=== PATIENT | female | born 1965 ===

== ENCOUNTER 2017-10-04 14:17 | Observation (INO) | payer MEDICAID ==
[2017-10-04 14:17] VITALS: BMI 27.8
[2017-10-04] MEDS ORDERED: Sodium Chloride 0.9% 1,000 ML IV STA (16:18)
[2017-10-04 16:34] LABS: BASO # 0.2 K/uL (0.0-0.2); BASO % 2.1 % (0.0-2.0); EOS # 0.6 K/uL (0.0-0.7); EOS % 5.9 % (0.0-4.0); HEMOGLOBIN 15.5 g/dL (11.0-16.0); LYMPH # 4.9 K/uL (1.0-4.3); LYMPH % 51.7 % (20.0-40.0); MEAN CELL VOLUME 86.3 fL (81.0-99.0); MEAN CORPUSCULAR HEMOGLOBIN 29.8 pg (27.0-31.0); MEAN CORPUSCULAR HGB CONC 34.5 g/dL (33.0-37.0); MONO # 0.7 K/uL (0.0-0.8); MONO % 7.1 % (0.0-10.0); NEUT # 3.1 K/uL (1.8-7.0); NEUT % 33.2 % (50.0-75.0); NRBC % 0.1 % (0.0-2.0); RBC 5.21 Mil/uL (3.80-5.20); RED CELL DISTRIBUTION WIDTH 14.4 % (11.5-14.5); WHITE BLOOD COUNT 9.4 K/uL (4.8-10.8)
[2017-10-04 16:36] LABS: HCG,QUALITATIVE URINE NEGATIVE (NEGATIVE)
[2017-10-04 16:41] LABS: INR 0.9; PROTHROMBIN TIME 10.3 SECONDS (9.7-12.2)
[2017-10-04 16:44] LABS: SQUAMOUS EPITHIAL 8 /hpf (0-5); URINE AMORPHOUS SEDIMENT FEW /ul (<OCC); URINE BACTERIA FEW (<OCC); URINE BILIRUBIN NEGATIVE (NEGATIVE); URINE BLOOD NEGATIVE (NEGATIVE); URINE CLARITY Hazy (Clear); URINE COLOR Yellow (YELLOW); URINE GLUCOSE (UA) NORMAL (Normal); URINE LEUKOCYTE ESTERASE TRACE Leu/uL (Negative); URINE PROTEIN NEGATIVE (NEGATIVE); URINE UROBILINOGEN NORMAL mg/dL (0.2-1.0)
[2017-10-04] MEDS ORDERED: Sodium Chloride 0.9% 1,000 ML ONE ×2 (17:05→20:38)
[2017-10-04 17:17] LABS: ALBUMIN 4.7 g/dL (3.5-5.0); ALT/SGPT 31 U/L (9-52); AST/SGOT 54 U/L (14-36); BLOOD UREA NITROGEN 15 mg/dL (7-17); CALCIUM 9.8 mg/dl (8.6-10.4); GFR AFRICAN-AMERICAN > 60; GFR NON-AFRICAN AMERICAN > 60
[2017-10-04 17:27] LABS: CK-MB 0.42 ng/mL (0.0-3.38)
--- NOTE | 2017-10-04 18:11 | C.PDOC ---
History Of Present Illness Patient is a 52 y/o female who presents to the ED with complaints of generalized weakness and nausea for the last 2-3 days. Patient admits to Hx of anemia and states feeling similar to when she has low hemoglobin levels. This morning, patient notes near-syncopal episode; admits to weakness and blurred vision. No other physical complaints at this time. Time Seen by Provider: 10/04/17 15:53 Chief Complaint (Nursing): Dizziness/Lightheaded History Per: Patient History/Exam Limitations: no limitations Onset/Duration Of Symptoms: Days (2-3) Current Symptoms Are (Timing): Still Present Fall Associated With With Symptoms: No Recent travel outside of the [place]: No Past Medical History Reviewed: Historical Data, Nursing Documentation, Vital Signs Vital Signs: Last Vital Signs Temp 98.6 F 10/04/17 18:14 Pulse 68 10/04/17 18:14 Resp 18 10/04/17 18:14 BP 120/77 10/04/17 18:14 Pulse Ox 100 10/04/17 18:16 - Medical History PMH: Anemia, Asthma, Depression, Migraine Denies: Chronic Kidney Disease Surgical History: No Surg Hx - [facility] RADICAL EXCIS SKIN LES (11/11/13) Family History: States: Unknown Family Hx - Social History Hx Tobacco Use: No Hx Alcohol Use: No Hx Substance Use: No - Immunization History Hx Tetanus Toxoid Vaccination: No Hx Influenza Vaccination: No Hx Pneumococcal Vaccination: No Review Of Systems Constitutional: Positive for: Weakness (generalized) Eyes: Positive for: Vision Change (blurred vision during near-syncopal episode) Gastrointestinal: Positive for: Nausea Physical Exam - Physical Exam Appears: Well, Non-toxic, No Acute Distress Skin: Normal Color, Warm, Dry, No Pale Head: Atraumatic, Normacephalic Eye(s): bilateral: Normal Inspection Oral Mucosa: Moist Chest: Symmetrical Cardiovascular: Rhythm Regular, No Murmur Respiratory: Normal Breath Sounds, No Rales, No Rhonchi, No Wheezing Gastrointestinal/Abdominal: Soft, No Tenderness Extremity: Normal ROM (x4) Neurological/Psych: Oriented x3, Normal Speech, Normal Cognition Gait: Steady ED Course And Treatment - Laboratory Results Result Diagrams: 10/04/17 16:27 10/04/17 16:27 ECG: Interpreted By Me ECG Rhythm: Sinus Rhythm, Nonspecific Changes Interpretation Of ECG: no acute changes. Rate From EC O2 Sat by Pulse Oximetry: 100 Progress Note: EKG and cbc ordered. IV fluids administered. CBC shows patient is not anemic. Case was d/w who accepted her to tele for observation, medical device sales consultant wa informed. Disposition - Disposition Disposition: HOSPITALIZED Disposition Time: 18:44 Condition: FAIR Forms: [facility] ([place]) - Clinical Impression Clinical Impression: Near syncope - Scribe Statement The provider has reviewed the documentation as recorded by the Scribe Jessica Nolasco All medical record entries made by the Scribe were at my direction and personally dictated by me. I have reviewed the chart and agree that the record accurately reflects my personal performance of the history, physical exam, medical decision making, and the department course for this patient. I have also personally directed, reviewed, and agree with the discharge instructions and disposition. Decision To Admit - Pt Status Changed To: Hospital Disposition Of: Observation - . Bed Request Type: Telemetry Admitting Physician: Stanton Celeste Jr. Patient Diagnosis: Near syncope
--- NOTE | 2017-10-04 19:33 | CP.PCM.HP ---
History of Present Illness - History of Present Illness History of Present Illness: CC: " I felt dizzy" HPI: 52 year old female with past medical history of anemia and asthma for evaluation of near syncopal episode that occurred today. Patient reports that she began to feel tired and fatigue starting 2 weeks ago. Patient reports that yesterday at work she had an episode of dizziness while at work. She felt unsteady, but the room did not spin and there was no loss of consciousness. Patient attributed these symptoms to her anemia and went home for her and took a multivitamin and ferritin. Patient reports that today her head felt heavy, she felt unsteady again, and fell at work again without loss of consciousness or head trauma. Her coworkers and her told her that her speech was not making sense to them. Patient also reports headache that resolved with Tylenol given in the ED, blurry vision that started with the first episode of dizziness and is still present, 1 episode of epistaxis last week, chills and feeling cold , muscle weakness for the last few months, vomiting yesterday and 4 times today without blood, and decreased appetite. Denied changes in her weight. Patient reports that she had a CT scan 3 months ago in [place] that was negative. PMD:Dr. Eckert Past Medical History: Anemia, asthma Past Surgical History: cyst on scalp removed [address] Mejia, tubal ligation 26 years ago. Medications: Iron 325mg, albuterol prn Allergies: NKDA Family History: father of [place] at age 67. Mother is alive and has heart disease. PGM and PGF both of strokes. 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 Lives with . Denies tobacco use. Admits to drinking alcohol socially. Denies drug use. Present on Admission - Present on Admission Any Indicators Present on Admission: No Review of Systems - Constitutional Constitutional: Chills, Fever - EENT Eyes: Blurred Vision - Cardiovascular Cardiovascular: Dyspnea. absent: Chest Pain, Palpitations - Gastrointestinal Gastrointestinal: Diarrhea, Nausea, Vomiting. absent: Abdominal Pain - Genitourinary Genitourinary: absent: Dysuria - Neurological Neurological: Dizziness, Syncope. absent: Numbness - Endocrine Endocrine: Cold Intolorance, Fatigue. absent: Palpitations Past Patient History - Infectious Disease Hx of Infectious Diseases: None - Tetanus Immunizations Tetanus Immunization: Unknown - Past Medical History & Family History Past Medical History?: Yes - Past Social History Smoking Status: Never Smoked - CARDIAC Hx Cardiac Disorders: No - PULMONARY Hx Asthma: Yes - NEUROLOGICAL Hx Migraine: Yes - HEENT Hx HEENT Problems: No - RENAL Hx Chronic Kidney Disease: No - ENDOCRINE/METABOLIC Hx Endocrine Disorders: No - HEMATOLOGICAL/ONCOLOGICAL Hx Anemia: Yes - INTEGUMENTARY Hx Dermatological Problems: Yes Other/Comment: SCALP MASS X 2 - MUSCULOSKELETAL/RHEUMATOLOGICAL Hx Musculoskeletal Disorders: No Hx Falls: No - GASTROINTESTINAL Hx Gastrointestinal Disorders: No - GENITOURINARY/GYNECOLOGICAL Hx Genitourinary Disorders: No - PSYCHIATRIC Hx Depression: Yes Hx Substance Use: No - SURGICAL HISTORY Hx Surgeries: Yes Hx Tubal Ligation: Yes Other/Comment: excision of mass on scalp - ANESTHESIA Hx Anesthesia: Yes Hx Anesthesia Reactions: No Hx Malignant Hyperthermia: No Meds Allergies/Adverse Reactions: Allergies Allergy/AdvReac Type Severity Reaction Status Date / Time No Known Allergies Allergy Verified 10/04/17 14:39 Physical Exam - Constitutional Appears: Non-toxic, No Acute Distress - Head Exam Head Exam: ATRAUMATIC, NORMAL INSPECTION - Eye Exam Eye Exam: EOMI, Normal appearance, PERRL. absent: Scleral icterus Pupil Exam: NORMAL ACCOMODATION - ENT Exam ENT Exam: Mucous Membranes Moist - Respiratory Exam Respiratory Exam: Clear to Auscultation Bilateral, NORMAL BREATHING PATTERN. absent: Rales, Rhonchi, Wheezes, Stridor - Cardiovascular Exam Cardiovascular Exam: REGULAR RHYTHM, +S1, +S2. absent: Tachycardia, Systolic Murmur - GI/Abdominal Exam GI & Abdominal Exam: Normal Bowel Sounds, Soft. absent: Tenderness - Extremities Exam Extremities exam: Positive for: normal capillary refill, normal inspection, pedal pulses present. Negative for: pedal edema, tenderness - Neurological Exam Neurological exam: Alert, CN II-XII Intact, Oriented x3 - Expanded Neurological Exam Expanded Patient oriented to: person, place, time Cerebellar Function: Romberg: Normal Upper motor neuron: Babinski Sign: Normal Sensory exam: Lower Extremity Light Touch: Normal, Upper Extremity Light Touch: Normal Neuro motor strength exam: Left Upper Extremity: 5, Right Upper Extremity: 5, Left Lower Extremity: 5, Right Lower Extremity: 5 Coma Scale Eye Opening: SPONTANEOUS Coma Scale Motor Response: OBEYS COMMANDS - Psychiatric Exam Psychiatric exam: Normal Affect, Normal Mood - Skin Skin Exam: Normal Color Results - Vital Signs Recent Vital Signs: Last Vital Signs Temp 98.6 F 10/04/17 18:14 Pulse 68 10/04/17 18:14 Resp 18 10/04/17 18:14 BP 120/77 10/04/17 18:14 Pulse Ox 100 10/04/17 18:45 - Labs Result Diagrams: 10/04/17 16:27 10/04/17 16:27 Labs: Laboratory Results - last 24 hr 10/04/17 10/04/17 10/04/17 14:38 16:27 16:27 WBC 9.4 D RBC 5.21 H Hgb 15.5 D Hct 44.9 MCV 86.3 D MCH 29.8 MCHC 34.5 RDW 14.4 Plt Count 300 MPV 9.0 Neut % (Auto) 33.2 L Lymph % (Auto) 51.7 H [place] % (Auto) 7.1 Eos % (Auto) 5.9 H Baso % (Auto) 2.1 H Neut # (Auto) 3.1 Lymph # (Auto) 4.9 H [place] # (Auto) 0.7 Eos # (Auto) 0.6 Baso # (Auto) 0.2 PT INR APTT Sodium 142 Potassium 5.2 Chloride 102 Carbon Dioxide 26 Anion Gap 19 BUN 15 Creatinine 0.7 Est GFR ( Amer) > 60 Est GFR (Non-Af Amer) > 60 POC Glucose (mg/dL) 88 Random Glucose 71 Calcium 9.8 Total Bilirubin 1.0 AST 54 H ALT 31 Alkaline Phosphatase 107 Total Creatine Kinase 111 CK-MB (Mass) 0.42 Troponin I 0.0140 Total Protein 9.3 H Albumin 4.7 Globulin 4.6 H Albumin/Globulin Ratio 1.0 Urine Color Urine Clarity Urine pH Ur Specific [place] Urine Protein Urine Glucose (UA) Urine Ketones Urine Blood Urine Nitrate Urine Bilirubin Urine Urobilinogen Ur Leukocyte Esterase Urine WBC (Auto) Urine RBC (Auto) Ur Squamous Epith Cells Amorphous Sediment Urine Bacteria Urine HCG, Qual 10/04/17 10/04/17 16:27 16:27 WBC RBC Hgb Hct MCV MCH MCHC RDW Plt Count MPV Neut % (Auto) Lymph % (Auto) [place] % (Auto) Eos % (Auto) Baso % (Auto) Neut # (Auto) Lymph # (Auto) [place] # (Auto) Eos # (Auto) Baso # (Auto) PT 10.3 INR 0.9 APTT 32 Sodium Potassium Chloride Carbon Dioxide Anion Gap BUN Creatinine Est GFR ( Amer) Est GFR (Non-Af Amer) POC Glucose (mg/dL) Random Glucose Calcium Total Bilirubin AST ALT Alkaline Phosphatase Total Creatine Kinase CK-MB (Mass) Troponin I Total Protein Albumin Globulin Albumin/Globulin Ratio Urine Color Yellow Urine Clarity Hazy Urine pH 8.0 Ur Specific [place] 1.015 Urine Protein Negative Urine Glucose (UA) Normal Urine Ketones Negative Urine Blood Negative Urine Nitrate Negative Urine Bilirubin Negative Urine Urobilinogen Normal Ur Leukocyte Esterase Trace Urine WBC (Auto) 8 H Urine RBC (Auto) 2 Ur Squamous Epith Cells 8 H Amorphous Sediment Few H Urine Bacteria Few H Urine HCG, Qual Negative Assessment & Plan - Assessment and Plan (Free Text) Assessment: 1.) Dizziness/Syncope Patient admitted to tele - Head CT: No acute intracranial abnormality - f/u CT angio of the head - f/u ECHO - f/u carotid doppler - EKG: NSR - Trop: negative - f/u LISA and EKG x2 - f/u TSH and free T4 - f/u Lipid panel - Neuro checks q4h 2.) Hyperkalemia - K 5.2 - Continue to monitor 3.) History of Asthma - f/u Chest Xray - Albuterol prn 4.) History of Anemia - H/H 15.5/44.9 - Continue to monitor 5.) Prophylaxis - Protonix 40mg daily - SCDs Case discussed with Dr. Roula Cadet PGY-1
[2017-10-04] MEDS ORDERED: Albuterol HFA 90 mcg/actuation (8 g) INH PRN (20:18)
[2017-10-04] MEDS: Sodium Chloride 0.9% 1,000 ML IV SCH (20:37)
--- NOTE | 2017-10-04 21:45 | CT ---
EXAM: CT Head Without Intravenous Contrast EXAM DATE/TIME: 10/04/2017 7:58 PM CLINICAL HISTORY: 52 years old, female; Signs and symptoms; Syncope and collapse TECHNIQUE: Axial computed tomography images of the head/brain without intravenous contrast. All CT scans at this facility use one or more dose reduction techniques, viz.: automated exposure control; ma/kV adjustment per patient size (including targeted exams where dose is matched to indication; i.e. head); or iterative reconstruction technique. COMPARISON: There are no prior studies for comparison. FINDINGS: Brain and ventricles: Ventricles are normal in size and configuration. There is no midline shift. There are no intra-axial or extra-axial mass lesions or areas of hemorrhage. There are no abnormal fluid collections. Woods-white differentiation is maintained. Bones: Cranial vault is intact. Soft tissues: There is a partially calcified posterior parietal scalp mass. Sinuses: There is no acute sinusitis. Ears and mastoids: Middle ears and mastoids are unremarkable Orbits: Orbital contents are unremarkable. IMPRESSION: No acute intracranial abnormality
[2017-10-05] MEDS ORDERED: Iodixanol 320 MG/ML 100 ML BOTTLE IV ONE (01:13)
[2017-10-05 01:20] LABS: BLOOD UREA NITROGEN 13 mg/dL (7-17); CALCIUM 8.5 mg/dl (8.6-10.4); GFR AFRICAN-AMERICAN > 60; GFR NON-AFRICAN AMERICAN > 60
--- NOTE | 2017-10-05 02:26 | CT ---
EXAM: CT Angiography Head With Intravenous Contrast CLINICAL HISTORY: 52 years old, female; Pain; Other: Blurry vision; Patient HX: 10-04-17; Additional info: Sycope/blurry vision TECHNIQUE: Axial computed tomographic angiography images of the head with intravenous contrast using CT angiography protocol. All CT scans at this facility use one or more dose reduction techniques, viz.: automated exposure control; ma/kV adjustment per patient size (including targeted exams where dose is matched to indication; i.e. head); or iterative reconstruction technique. MIP reconstructed images were created and reviewed. Coronal and sagittal reformatted images were created and reviewed. CONTRAST: 100 mL of [id number] administered intravenously. COMPARISON: No relevant prior studies available. FINDINGS: Right internal carotid artery: No acute findings. Intracranial segment is patent with no significant stenosis. No aneurysm. Right anterior cerebral artery: Unremarkable. No occlusion or significant stenosis. No aneurysm. Right middle cerebral artery: Unremarkable. No occlusion or significant stenosis. No aneurysm. Right posterior cerebral artery: Unremarkable. No occlusion or significant stenosis. No aneurysm. Right vertebral artery: Unremarkable as visualized. Left internal carotid artery: No acute findings. Intracranial segment is patent with no significant stenosis. No aneurysm. Left anterior cerebral artery: Unremarkable. No occlusion or significant stenosis. No aneurysm. Left middle cerebral artery: Unremarkable. No occlusion or significant stenosis. No aneurysm. Left posterior cerebral artery: Unremarkable. No occlusion or significant stenosis. No aneurysm. Left vertebral artery: Unremarkable as visualized. Basilar artery: Unremarkable. No occlusion or significant stenosis. No aneurysm. IMPRESSION: Unremarkable head CTA. EXAM: CT Angiography Neck With Intravenous Contrast CLINICAL HISTORY: 52 years old, female; Pain; Other: Blurry vision; Patient HX: 10-04-17; Additional info: Sycope/blurry vision TECHNIQUE: Axial computed tomographic angiography images of the neck with intravenous contrast using CT angiography protocol. MIP reconstructed images were created and reviewed. Coronal and sagittal reformatted images were created and reviewed. CONTRAST: 100 mL of [id number] administered intravenously. COMPARISON: CT - HEAD W/O CONTRAST 2017-10-04 20:50 FINDINGS: VASCULATURE: Right common carotid artery: Unremarkable. No significant stenosis. No dissection or occlusion. Right internal carotid artery: Unremarkable. Extracranial segment is patent with no significant stenosis. No dissection or occlusion. Right external carotid artery: Unremarkable. No occlusion. Right vertebral artery: Unremarkable. No significant stenosis. No dissection or occlusion. Left common carotid artery: Unremarkable. No significant stenosis. No dissection or occlusion. Left internal carotid artery: Unremarkable. Extracranial segment is patent with no significant stenosis. No dissection or occlusion. Left external carotid artery: Unremarkable. No occlusion. Left vertebral artery: Unremarkable. No significant stenosis. No dissection or occlusion. NECK: Bones/joints: No acute fracture. No dislocation. Soft tissues: There are multiple small cervical and submandibular lymph nodes. The largest represent a submandibular lymph node measures 1.9 cm. The largest represent cervical lymph node measures 1.5 cm. No mass. CAROTID STENOSIS REFERENCE USING NASCET CRITERIA: % ICA stenosis = (1 - narrowest ICA diameter/diameter of distal cervical ICA) x 100. Mild - <50% stenosis. Moderate - 50-69% stenosis. Severe - 70-94% stenosis. Near occlusion - 95-99% stenosis. Occluded - 100% stenosis. IMPRESSION: Unremarkable neck CTA.
[2017-10-05 04:29] VITALS: O2SAT 98
[2017-10-05 06:23] LABS: BASO # 0.1 K/uL (0.0-0.2); EOS # 0.6 K/uL (0.0-0.7); EOS % 9.2 % (0.0-4.0); HEMOGLOBIN 12.7 g/dL (11.0-16.0); LYMPH # 3.5 K/uL (1.0-4.3); LYMPH % 50.3 % (20.0-40.0); MEAN CORPUSCULAR HEMOGLOBIN 29.6 pg (27.0-31.0); MEAN CORPUSCULAR HGB CONC 34.4 g/dL (33.0-37.0); MEAN PLATELET VOLUME 9.2 fL (7.2-11.7); MONO # 0.7 K/uL (0.0-0.8); MONO % 10.5 % (0.0-10.0); RBC 4.31 Mil/uL (3.80-5.20); RED CELL DISTRIBUTION WIDTH 14.4 % (11.5-14.5); WHITE BLOOD COUNT 6.9 K/uL (4.8-10.8)
[2017-10-05 06:39] LABS: ALBUMIN 3.2 g/dL (3.5-5.0); ALT/SGPT 20 U/L (9-52); AST/SGOT 26 U/L (14-36); BLOOD UREA NITROGEN 12 mg/dL (7-17); CALCIUM 8.5 mg/dl (8.6-10.4); GFR AFRICAN-AMERICAN > 60; GFR NON-AFRICAN AMERICAN > 60; HDL CHOLESTEROL 43 mg/dL (30-70)
[2017-10-05 06:49] LABS: LDL CHOLESTEROL 76 mg/dL (0-129)
[2017-10-05 06:50] LABS: CK-MB 0.31 ng/mL (0.0-3.38)
--- NOTE | 2017-10-05 06:55 | CP.PCM.PN ---
<Antonio Marmolejo - Last Filed: 10/05/17 09:51> Subjective - Date & Time of Evaluation Date of Evaluation: 10/05/17 Time of Evaluation: 06:51 - Subjective Subjective: PGY-[address] Childress's service: Pt seen and examined at bedside. Nursing reports no acute events overnight. Patient found lying in bed comfortably. She denies dizziness overnight, but admits feeling heavy sensation below her eyes. Reports eyes have been watering, and has "mucous running down her throat." Admits history of seasonal (pollen) allergies. Admits history of migraines, 2-3 times per week which resolve after taking ibuprofen. Objective - Vital Signs/Intake and Output Vital Signs (last 24 hours): Temp Pulse Resp BP Pulse Ox 97.5 F L 62 20 93/57 L 98 10/05/17 04:29 10/05/17 04:29 10/05/17 04:29 10/05/17 04:29 10/05/17 04:29 - Medications Medications: Current Medications Albuterol (Ventolin Hfa 90 Mcg/Actuation (8 G)) 2 puff INH RQ6 PRN PRN Reason: Shortness of Breath Sodium Chloride (Sodium Chloride 0.9%) 1,000 mls @ 80 mls/hr IV .[id number] IVONNE Last Admin: 10/04/17 20:37 Dose: 80 mls/hr Metoclopramide HCl (Reglan) 10 mg IVP Q6H PRN PRN Reason: Nausea/Vomiting Last Admin: 10/04/17 22:42 Dose: 10 mg Pantoprazole Sodium (Protonix Inj) 40 mg IVP DAILY IVONNE - Labs Labs: 10/05/17 06:17 10/05/17 06:17 PT 10.3 SECONDS (9.7-12.2) 10/04/17 16:27 INR 0.9 10/04/17 16:27 APTT 32 SECONDS (21-34) 10/04/17 16:27 - Additional Findings Additional findings: - Constitutional Appears: Non-toxic, No Acute Distress - Head Exam Head Exam: ATRAUMATIC, NORMAL INSPECTION - Eye Exam Eye Exam: EOMI, Normal appearance, PERRL. absent: Scleral icterus Pupil Exam: NORMAL ACCOMODATION - ENT Exam ENT Exam: Mucous Membranes Moist - tenderness to palpation at bilateral maxillary sinuses, hyperemic nostril bilaterally, post-nasal drip - Respiratory Exam Respiratory Exam: Clear to Auscultation Bilateral, NORMAL BREATHING PATTERN. absent: Rales, Rhonchi, Wheezes, Stridor - Cardiovascular Exam Cardiovascular Exam: REGULAR RHYTHM, +S1, +S2. absent: Tachycardia, Systolic Murmur - GI/Abdominal Exam GI & Abdominal Exam: Normal Bowel Sounds, Soft. absent: Tenderness - Extremities Exam Extremities exam: Positive for: normal capillary refill, normal inspection, pedal pulses present. Negative for: pedal edema, tenderness - Neurological Exam Neurological exam: Alert, CN II-XII Intact, Oriented x3 - light touch intact - Psychiatric Exam Psychiatric exam: Normal Affect, Normal Mood - Skin Skin Exam: Normal Color Assessment and Plan - Assessment and Plan (Free Text) Plan: Dizziness/Syncope Patient admitted to tele - Head CT: No acute intracranial abnormality - CT angio of the head: unremarkable - EKG: NSR @ 70, No acute ST/T wave changes - Trop: negative x 2 - f/u ECHO - f/u carotid doppler - TSH and free T4: WNL - Lipid panel: WNL (LDL 76, HDL 43, T Chol 138, TG 75) Seasonal allergies Hx Pollen/tree allergy Claritin 10mg PO Daily Flonase 2 sprays each nostril x 1 week, 1x each there after Hyperkalemia - resolved, 4.4 on am labs - Continue to monitor History of Asthma - Chest Xray (10/05/17): mild venous congestion. Diffuse interstitial lung markings. Tortuous aorta. - Albuterol prn Abnormal UA UA (10/05/17): WBC, few bacteria, but not clean cath (Sq ep 8) Pt denies symptoms, thus no treatment at this time History of Anemia - H/H 15.5/44.9 on admission - Hgb 12.7, perhaps from fluid dilution, pt denies bleeding - Continue to monitor Prophylaxis - Protonix 40mg daily - SCDs - Restart normal diet Antonio Marmolejo PGY-2 D/w Dr. Childress <Stanton Childress Jr. - Last Filed: 10/05/17 14:58> Objective - Vital Signs/Intake and Output Vital Signs (last 24 hours): Temp Pulse Resp BP Pulse Ox 98.7 F 66 18 110/72 98 10/05/17 07:45 10/05/17 07:45 10/05/17 07:45 10/05/17 07:45 10/05/17 08:00 - Medications Medications: Current Medications Albuterol (Ventolin Hfa 90 Mcg/Actuation (8 G)) 2 puff INH RQ6 PRN PRN Reason: Shortness of Breath Fluticasone Propionate (Flonase) 2 spr LIGIA DAILY IVONNE Last Admin: 10/05/17 10:18 Dose: 2 spr Loratadine (Claritin) 10 mg PO DAILY IVONNE Last Admin: 10/05/17 10:19 Dose: 10 mg Metoclopramide HCl (Reglan) 10 mg IVP Q6H PRN PRN Reason: Nausea/Vomiting Last Admin: 10/04/17 22:42 Dose: 10 mg Pantoprazole Sodium (Protonix Inj) 40 mg IVP DAILY IVONNE Last Admin: 10/05/17 10:19 Dose: 40 mg - Labs Labs: 10/05/17 06:17 10/05/17 06:17 PT 10.3 SECONDS (9.7-12.2) 10/04/17 16:27 INR 0.9 10/04/17 16:27 APTT 32 SECONDS (21-34) 10/04/17 16:27 Attending/Attestation - Attestation I have personally seen and examined this patient.: Yes I have fully participated in the care of the patient.: Yes I have reviewed all pertinent clinical information, including history, physical exam and plan: Yes Notes (Text): 10/05/17 14:57 agree with resident note findings and plan of care.
--- NOTE | 2017-10-05 08:09 | RAD ---
Chest x-ray single frontal view History: Shortness of breath. Comparison: 04/09/2016 Findings: Mild venous congestion. Diffuse increased interstitial lung markings. Right hilar prominence. Bibasilar breast and nipple shadows. Tortuous aorta. Heart size within normal limits. Degenerative changes in the spine. Impression: Mild venous congestion. Diffuse increased interstitial lung markings. Right hilar prominence. Bibasilar breast and nipple shadows. Tortuous aorta.
[2017-10-05 08:33] VITALS: BP 110/72; PULSE 66; RESP 18; TEMP 98.7
[2017-10-05] MEDS: Sodium Chloride 0.9% 1,000 ML IV SCH (09:01)
[2017-10-05] MEDS ORDERED: Fluticasone Nasal 50 mcg/Spray NAS SCH (10:00)
[2017-10-05 10:35] LABS: B-TYPE NATRIURETIC PEPTIDE 53.7 pg/mL (0-900)
--- NOTE | 2017-10-05 11:40 | CARD ---
APPROVED REPORT EXAM: Two-dimensional and M-mode echocardiogram with Doppler and color Doppler. Other Information Quality : GoodRhythm : INDICATION Dyspnea Syncope 2D DIMENSIONS IVSd0.9 (0.7-1.1cm)LVDd3.6 (3.9-5.9cm) LVOT Diameter1.8 (1.8-2.4cm)PWd1.1 (0.7-1.1cm) LVDs2.6 (2.5-4.0cm)FS (%) 25.9 % LVEF (%)60.0 (>50%) M-Mode DIMENSIONS Left Atrium (MM)3.60 (2.5-4.0cm)Aortic Root3.06 (2.2-3.7cm) Aortic Cusp Exc.1.77 (1.5-2.0cm) Mitral Valve MV E Gptmwhsh38.9cm/sMV A Titbympe40.6cm/sE/A ratio1.4 TDI E/Lateral E'0.0E/Medial E'0.0 Tricuspid Valve TR Peak [id number]/sRAP [id number] Peak Gr.17mmHg [id number] LEFT VENTRICLE The left ventricle is normal size. There is normal left ventricular wall thickness. The left ventricular function is normal. The left ventricular ejection fraction is within the normal range. There is normal LV segmental wall motion. The left ventricular diastolic function is normal. RIGHT VENTRICLE The right ventricle is normal size. There is normal right ventricular wall thickness. The right ventricular systolic function is normal. ATRIA The left atrium size is normal. The right atrium size is normal. The interatrial septum is intact with no evidence for an atrial septal defect. AORTIC VALVE The aortic valve is normal in structure. No aortic regurgitation is present. MITRAL VALVE The mitral valve is normal in structure. Insignificant trace of mitral regurgitation. TRICUSPID VALVE The tricuspid valve is normal in structure. Insignificant trace to mild tricuspid regurgitation. There is no pulmonary hypertension. PULMONIC VALVE The pulmonary valve is normal in structure. GREAT VESSELS The aortic root is normal in size. The IVC is normal in size and collapses >50% with inspiration. PERICARDIAL EFFUSION There is no pericardial effusion. <Conclusion> Normal bi-ventricular function. No significant valvular abnormality. No pericardial effusion.
--- NOTE | 2017-10-05 15:33 | CP.PCM.DIS ---
Provider - Provider Date of Admission: 10/04/17 18:45 Attending physician: Stanton Celeste Jr, MD Primary care physician: PMD: Madeleine Mckeonist service: Roula Consults: none Time Spent in preparation of Discharge (in minutes): 35 Diagnosis - Discharge Diagnosis (1) Near syncope Status: Acute Comment: See hospital course Hospital Course - Lab Results Lab Results: Most Recent Lab Values WBC 6.9 K/uL (4.8-10.8) 10/05/17 06:17 RBC 4.31 Mil/uL (3.80-5.20) 10/05/17 06:17 Hgb 12.7 g/dL (11.0-16.0) D 10/05/17 06:17 Hct 37.0 % (34.0-47.0) 10/05/17 06:17 MCV 86.0 fL (81.0-99.0) 10/05/17 06:17 MCH 29.6 pg (27.0-31.0) 10/05/17 06:17 MCHC 34.4 g/dL (33.0-37.0) 10/05/17 06:17 RDW 14.4 % (11.5-14.5) 10/05/17 06:17 Plt Count 209 K/uL (130-400) 10/05/17 06:17 MPV 9.2 fL (7.2-11.7) 10/05/17 06:17 Neut % (Auto) 29.0 % (50.0-75.0) L 10/05/17 06:17 Lymph % (Auto) 50.3 % (20.0-40.0) H 10/05/17 06:17 [place] % (Auto) 10.5 % (0.0-10.0) H 10/05/17 06:17 Eos % (Auto) 9.2 % (0.0-4.0) H 10/05/17 06:17 Baso % (Auto) 1.0 % (0.0-2.0) 10/05/17 06:17 Neut # (Auto) 2.0 K/uL (1.8-7.0) 10/05/17 06:17 Lymph # (Auto) 3.5 K/uL (1.0-4.3) 10/05/17 06:17 [place] # (Auto) 0.7 K/uL (0.0-0.8) 10/05/17 06:17 Eos # (Auto) 0.6 K/uL (0.0-0.7) 10/05/17 06:17 Baso # (Auto) 0.1 K/uL (0.0-0.2) 10/05/17 06:17 PT 10.3 SECONDS (9.7-12.2) 10/04/17 16:27 INR 0.9 10/04/17 16:27 APTT 32 SECONDS (21-34) 10/04/17 16:27 Sodium 142 mmol/L (132-148) 10/05/17 06:17 Potassium 4.4 mmol/L (3.6-5.2) 10/05/17 06:17 Chloride 108 mmol/L (98-107) H 10/05/17 06:17 Carbon Dioxide 24 mmol/L (22-30) 10/05/17 06:17 Anion Gap 14 (10-20) 10/05/17 06:17 BUN 12 mg/dL (7-17) 10/05/17 06:17 Creatinine 0.7 mg/dL (0.7-1.2) 10/05/17 06:17 Est GFR ( Amer) > 60 10/05/17 06:17 Est GFR (Non-Af Amer) > 60 10/05/17 06:17 POC Glucose (mg/dL) 88 mg/dL (65-110) 10/04/17 14:38 Random Glucose 88 mg/dL (65-105) 10/05/17 06:17 Calcium 8.5 mg/dl (8.6-10.4) L 10/05/17 06:17 Phosphorus 4.4 mg/dL (2.5-4.5) 10/05/17 06:17 Magnesium 1.8 mg/dL (1.6-2.3) 10/05/17 06:17 Total Bilirubin 0.2 mg/dL (0.2-1.3) 10/05/17 06:17 AST 26 U/L (14-36) 10/05/17 06:17 ALT 20 U/L (9-52) 10/05/17 06:17 Alkaline Phosphatase 82 U/L (38-126) 10/05/17 06:17 Total Creatine Kinase 72 U/L (30-135) 10/05/17 13:58 CK-MB (Mass) 0.40 ng/mL (0.0-3.38) 10/05/17 13:58 Troponin I < 0.0120 ng/mL (0.00-0.120) 10/05/17 13:58 NT-Pro-B Natriuret Pep 53.7 pg/mL (0-900) 10/05/17 06:17 Total Protein 6.3 g/dL (6.3-8.3) 10/05/17 06:17 Albumin 3.2 g/dL (3.5-5.0) L D 10/05/17 06:17 Globulin 3.1 gm/dL (2.2-3.9) 10/05/17 06:17 Albumin/Globulin Ratio 1.0 (1.0-2.1) 10/05/17 06:17 Triglycerides 75 mg/dL (0-149) 10/05/17 06:17 Cholesterol 138 mg/dL (0-199) 10/05/17 06:17 LDL Cholesterol Direct 76 mg/dL (0-129) 10/05/17 06:17 HDL Cholesterol 43 mg/dL (30-70) 10/05/17 06:17 Free T4 0.96 ng/dL (0.78-2.19) 10/05/17 06:17 TSH 3rd Generation 3.70 mIU/L (0.46-4.68) 10/05/17 06:17 Urine Color Yellow (YELLOW) 10/04/17 16:27 Urine Clarity Hazy (Clear) 10/04/17 16:27 Urine pH 8.0 (5.0-8.0) 10/04/17 16:27 Ur Specific [place] 1.015 (1.003-1.030) 10/04/17 16:27 Urine Protein Negative mg/dL (NEGATIVE) 10/04/17 16:27 Urine Glucose (UA) Normal mg/dL (Normal) 10/04/17 16:27 Urine Ketones Negative mg/dL (NEGATIVE) 10/04/17 16:27 Urine Blood Negative (NEGATIVE) 10/04/17 16:27 Urine Nitrate Negative (NEGATIVE) 10/04/17 16:27 Urine Bilirubin Negative (NEGATIVE) 10/04/17 16:27 Urine Urobilinogen Normal mg/dL (0.2-1.0) 10/04/17 16:27 Ur Leukocyte Esterase Trace Hunter/uL (Negative) 10/04/17 16:27 Urine WBC (Auto) 8 /hpf (0-5) H 10/04/17 16:27 Urine RBC (Auto) 2 /hpf (0-3) 10/04/17 16:27 Ur Squamous Epith Cells 8 /hpf (0-5) H 10/04/17 16:27 Amorphous Sediment Few /ul (<OCC) H 10/04/17 16:27 Urine Bacteria Few (<OCC) H 10/04/17 16:27 Urine HCG, Qual Negative (NEGATIVE) 10/04/17 16:27 - Hospital Course Hospital Course: On admission: 52 year old female with past medical history of anemia and asthma for evaluation of near syncopal episode that occurred today. Patient reports that she began to feel tired and fatigue starting 2 weeks ago. Patient reports that yesterday at work she had an episode of dizziness while at work. She felt unsteady, but the room did not spin and there was no loss of consciousness. Patient attributed these symptoms to her anemia and went home for her and took a multivitamin and ferritin. Patient reports that today her head felt heavy, she felt unsteady again, and fell at work again without loss of consciousness or head trauma. Her coworkers and her told her that her speech was not making sense to them. Patient also reports headache that resolved with Tylenol given in the ED, blurry vision that started with the first episode of dizziness and is still present, 1 episode of epistaxis last week, chills and feeling cold , muscle weakness for the last few months, vomiting yesterday and 4 times today without blood, and decreased appetite. Denied changes in her weight. Patient reports that she had a CT scan 3 months ago in [place] that was negative. Hospital course: Admitted 10/04/17 for near syncopal episode. Troponins negative x 3; EKG no acute changes. CT Head/CT angio performed which were negative. CXR ECHO/ Carotid negative. T3/T4 WNL. Lightheadedness on admission resolved next day AM. Pt admitting worsening allergy symptoms with tenderness to palpation in maxillary sinuses. Recommended OTC allergy products. Patient discharged on with instructions to f/u with PMD. - Date & Time of H&P Date of H&P: 10/04/17 Time of H&P: 19:33 Discharge Exam - Additional Findings Additional findings: - Constitutional Appears: Non-toxic, No Acute Distress - Head Exam Head Exam: ATRAUMATIC, NORMAL INSPECTION - Eye Exam Eye Exam: EOMI, Normal appearance, PERRL. absent: Scleral icterus Pupil Exam: NORMAL ACCOMODATION - ENT Exam ENT Exam: Mucous Membranes Moist - tenderness to palpation at bilateral maxillary sinuses, hyperemic nostril bilaterally, post-nasal drip - Respiratory Exam Respiratory Exam: Clear to Auscultation Bilateral, NORMAL BREATHING PATTERN. absent: Rales, Rhonchi, Wheezes, Stridor - Cardiovascular Exam Cardiovascular Exam: REGULAR RHYTHM, +S1, +S2. absent: Tachycardia, Systolic Murmur - GI/Abdominal Exam GI & Abdominal Exam: Normal Bowel Sounds, Soft. absent: Tenderness - Extremities Exam Extremities exam: Positive for: normal capillary refill, normal inspection, pedal pulses present. Negative for: pedal edema, tenderness - Neurological Exam Neurological exam: Alert, CN II-XII Intact, Oriented x3 - light touch intact - Psychiatric Exam Psychiatric exam: Normal Affect, Normal Mood - Skin Skin Exam: Normal Color Discharge Plan - Follow Up Plan Condition: GOOD Disposition: HOME/ ROUTINE Instructions: Migraine Headaches in Adults, Near Fainting (DC) Additional Instructions: Pt stable for discharge per Dr Celeste Patient should resume her home medications. In addition she may buy OTC meds listed below for her allergies. Patient should follow up with PMD regarding chronic medical conditions within one week of discharge. Patient should return to the ED if symptoms return or worsen. Instructions given to patient at bedside. She verbalized her understanding and agreed. Prescribed medications: NONE OTC medications recommended: Claritin or Zyrtec Daily Flonase Nasal spray daily
--- NOTE | 2017-10-07 09:12 | VASCLAB ---
PROCEDURE: HISTORY: syncope, blurry vision COMPARISON: None available. TECHNIQUE: Grayscale and duplex Doppler evaluation of the cervical carotid and vertebral arteries were performed. The common carotid, carotid bifurcations and cervical Internal Carotid Artery (ICA) and proximal External Carotid Artery (ECA) were evaluated. The vertebral arteries were evaluated for gross patency and flow direction. Report prepared by Pj Lea, T FINDINGS: RIGHT CAROTID ARTERIES: 1. Common Carotid Artery: No significant focal plaque formation of the right common carotid artery. Maximum Peak Systolic velocity: 84.6 cm/sec: End-diastolic velocity 23.3 cm/sec. 2. Carotid Bifurcation: No significant focal plaque formation. Maximum Peak Systolic velocity: 67.7 cm/sec: End-diastolic velocity 23.3 cm/sec. 3. Internal Carotid Artery: No significant focal plaque. Plaque description: 3.1. Proximal Segment: Peak systolic velocity 66.9 cm/sec: End-diastolic velocity 25.9 cm/sec - % stenosis 3.2. Middle Segment: Peak systolic velocity 79.2 cm/sec: End-diastolic velocity 36.8 cm/sec - % stenosis 3.3. Distal Segment: Peak systolic velocity 57.4 cm/sec: End-diastolic velocity 23.8 cm/sec - % stenosis 4. External Carotid Artery: No significant focal plaque formation. Peak systolic velocity 65.3 cm/sec 5. ICA/CCA Ratio: 1.0 LEFT CAROTID ARTERIES: 1. Common Carotid Artery: No significant focal plaque formation of the left common carotid artery. Maximum Peak Systolic velocity: 96.3 cm/sec: End-diastolic velocity 27.4 cm/sec. 2. Carotid Bifurcation: No significant focal plaque formation. Maximum Peak Systolic velocity: 72.6 cm/sec: End-diastolic velocity 23.4 cm/sec. 3. Internal Carotid Artery: No significant focal plaque. Plaque description: 3.1. Proximal Segment: Peak systolic velocity 71.8 cm/sec: End-diastolic velocity 18.2 cm/sec - % stenosis 3.2. Middle Segment: Peak systolic velocity 69.0 cm/sec: End-diastolic velocity 27.3 cm/sec - % stenosis 3.3. Distal Segment: Peak systolic velocity 72.6 cm/sec: End-diastolic velocity 23.4 cm/sec - % stenosis 4. External Carotid Artery: No significant focal plaque formation. Peak systolic velocity 85.6 cm/sec 5. ICA/CCA Ratio: 0.8 VERTEBRAL ARTERIES: 1. Right Vertebral Artery: The right vertebral artery flow direction is antegrade. 2. Left Vertebral Artery: The left vertebral artery flow direction is antegrade. OTHER FINDINGS: 1. Right Brachial Blood pressure: mmHg. 2. Left Brachial Blood pressure: mmHg. IMPRESSION: RIGHT: Duplex scan does not suggest hemodynamically significant stenosis of the right extracranial carotid arteries. LEFT: Duplex scan does not suggest hemodynamically significant stenosis of the left extracranial carotid arteries.
--- NOTE | 2017-10-08 15:48 | CARD ---
APPROVED REPORT EKG Measurement Heart [id number] [id number] <Conclusion> Normal sinus rhythm Normal ECG
== END 2017-10-05 15:15 | disposition home or self-care (01) ==
LOC: C.ER 14:17 → C.9E 18:45 → C.6T 20:29
PROVIDERS: ADMIT Internal Medicine; ATTEND Internal Medicine
DX: R55 Syncope and collapse (principal); D64.9 Anemia, unspecified; J45.909 Unspecified asthma, uncomplicated
CPT/HCPCS: 36415; 70450; 70496; 71045; 80048; 80053; 80061; 81001; 82550; 82553; 82948; 83036; 83735; 83880; 84100; 84439; 84443; 84484; 84703; 85025; 85610; 85730; 93306; 93880; 96361; 96374; 96375; 99285; C9113; G0378; J2765; J7040; Q9967

== ENCOUNTER 2018-10-08 18:05 | Emergency (ER) | payer MEDICAID | END 2018-10-08 22:01 | disposition home or self-care (01) | LOC: C.ER 18:05 ==